=== PATIENT | male | born 1955 | race Caucasian/White ===

== ENCOUNTER → 2019-06-05 | Outpatient (CLI) | payer BC ==
--- NOTE | 2019-06-05 16:03 | Diagnostic Imaging Report ---
PROCEDURE: CT abdomen and pelvis without contrast. TECHNIQUE: Multiple contiguous axial images were obtained through the abdomen and pelvis without the use of intravenous contrast. Auto Exposure Controls were utilized during the CT exam to meet ALARA standards for radiation dose reduction. INDICATION: Microhematuria for one month. Currently asymptomatic. COMPARISON: None. FINDINGS: The heart is unremarkable. The included lung bases are clear. A moderate hiatal hernia is present. No evidence of obstruction calculi or hydronephrosis. No nonobstructing calculi are visualized in the kidneys. Nonspecific perinephric fat stranding is seen bilaterally. No obvious renal masses are seen on this noncontrast study. The urinary bladder is nondistended. The liver, spleen, pancreas, and adrenal glands have an unremarkable noncontrast CT appearance. There is no pathologically enlarged mesenteric or retroperitoneal adenopathy. The bowel loops are nondilated. There is no free fluid or free air. No acute osseous abnormalities. There is calcified aortic and iliac atherosclerotic plaque without aneurysm. There is no free air, loculated collection, or adenopathy in the pelvis. Small right and [id number] left inguinal hernia are visualized. The left inguinal hernia contains a loop of sigmoid colon. IMPRESSION: 1. No evidence of hydronephrosis or renal calculi. Nonspecific perinephric fat stranding is visualized. No obvious renal masses are seen. 2. Small to moderate left inguinal hernia containing a loop of sigmoid colon. No evidence of obstruction. 3. Moderate hiatal hernia. Dictated by: Dictated on workstation # [id number]
== END ==
LOC: RAD 15:23
PROVIDERS: ATTEND Urology
DX: K40.90 Unilateral inguinal hernia, without obstruction or gangrene, not specified as recurrent (principal); K44.9 Diaphragmatic hernia without obstruction or gangrene
CPT/HCPCS: 74176

== ENCOUNTER → 2019-07-12 | Outpatient (CLI) | payer BC ==
--- NOTE | 2019-07-12 11:58 | Diagnostic Imaging Report ---
INDICATION: Prostate CA. TECHNIQUE: 25 mCi tech 99 MDP given IV. 3 hour delayed whole body imaging. There is good uptake throughout the skeletal system. There is some focal increased uptake within the posterior vertebral body at the region of L4 on the left. There is also activity within both knees and ankles. IMPRESSION: 1. Degenerative changes noted within the knees and ankles. 2. Single foci of increased activity posteriorly along the level of L4 vertebral body. 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 No blastic lesions are seen in this region. Dictated by: Dictated on workstation # [id number]
== END ==
LOC: CARD 07:46
PROVIDERS: ATTEND Urology
DX: C61 Malignant neoplasm of prostate (principal); M17.0 Bilateral primary osteoarthritis of knee; M19.071 Primary osteoarthritis, right ankle and foot; M19.072 Primary osteoarthritis, left ankle and foot; M47.817 Spondylosis without myelopathy or radiculopathy, lumbosacral region
CPT/HCPCS: 78306

== ENCOUNTER 2020-07-07 14:58 | Outpatient (RCR) | payer BC | END 2020-07-21 | disposition home or self-care (01) | LOC: ONC 14:58 | PROVIDERS: ATTEND Radiology Radiation Oncology | DX: C61 Malignant neoplasm of prostate (principal); I10 Essential (primary) hypertension; E11.9 Type 2 diabetes mellitus without complications; Z85.828 Personal history of other malignant neoplasm of skin | CPT/HCPCS: 77300; 77301; 77334; 77336; 77338; 77385; 99204 ==

== ENCOUNTER 2020-08-20 10:17 | Outpatient (RCR) | payer BC ==
[2020-09-23] MEDS ORDERED: METF-399 PO (10:48)
[2020-09-23] MEDS ORDERED: MULT-1136 PO (10:49)
[2020-09-23] MEDS ORDERED: FERR325T24 PO (10:49)
[2020-09-23] MEDS ORDERED: LISI10TA25 PO (10:53)
[2020-09-23] MEDS ORDERED: EZET10TA49 PO (10:53)
[2020-09-23] MEDS ORDERED: HYDR12.56 PO (10:53)
[2020-09-23] MEDS ORDERED: VENL37.52 PO (10:53)
== END 2020-11-18 | disposition home or self-care (01) ==
LOC: ONC 10:17
PROVIDERS: ATTEND Radiology Radiation Oncology
DX: C61 Malignant neoplasm of prostate (principal); I10 Essential (primary) hypertension; E11.9 Type 2 diabetes mellitus without complications; Z85.828 Personal history of other malignant neoplasm of skin; Z79.84 Long term (current) use of oral hypoglycemic drugs; Z79.899 Other long term (current) drug therapy
CPT/HCPCS: 99213

== ENCOUNTER 2020-09-23 10:18 | Outpatient (CLI) | payer BC ==
[~2020-09-23] VITALS: Ht 182.9 cm; Wt 108.0 kg
[2020-09-23] MEDS ORDERED: METF-399 PO (10:48)
[2020-09-23] MEDS ORDERED: FERR325T24 PO (10:49)
[2020-09-23] MEDS ORDERED: MULT-1136 PO (10:49)
[2020-09-23] MEDS ORDERED: VENL37.52 PO (10:53)
[2020-09-23] MEDS ORDERED: EZET10TA49 PO (10:53)
[2020-09-23] MEDS ORDERED: HYDR12.56 PO (10:53)
[2020-09-23] MEDS ORDERED: LISI10TA25 PO (10:53)
== END 2020-09-23 13:45 | disposition home or self-care (01) ==
LOC: PREOP 10:18
PROVIDERS: ATTEND Surgery
DX: Z01.818 Encounter for other preprocedural examination (principal)

== ENCOUNTER 2020-09-30 10:40 | Day surgery (SDC) | payer BC ==
--- NOTE | 2020-09-23 12:43 | HISTORY AND PHYSICAL ---
DATE OF SERVICE: PROCEDURE DATE: 09/30/2020. ATTENDING PRIMARY CARE PHYSICIAN: Mason Carbajal DO HISTORY OF PRESENT ILLNESS: The patient is a 64-year-old male who was referred over to us in need of a screening colonoscopy. He reports that at this point in his life he has never had went down before. He denies any blood in the stool as well as no family history of ANY colon cancer. He denies any diarrhea or constipation as well as no abdominal pain. He does report a personal history of prostate cancer as well as chronic lymphocytic leukemia. PAST MEDICAL HISTORY: Prostate cancer, hypertension, hyperlipidemia, type 2 diabetes, chronic lymphocytic leukemia. PAST SURGICAL HISTORY: Appendectomy, vasectomy, umbilical hernia repair with mesh in 2007. ALLERGIES: No known drug allergies. MEDICATIONS: Simvastatin 20 mg daily, Xtandi 40 mg, venlafaxine 37.5 mg, hydrochlorothiazide 12.5 mg, lisinopril 10 mg, metformin 1000 mg. SOCIAL HISTORY: Negative for smoke. Negative for alcohol. FAMILY HISTORY: Mother, hypertension. Father, diabetes. VITAL SIGNS: Blood pressure is 118/64. Current weight is 233.1 pounds, height 6 feet 0 inches. REVIEW OF SYSTEMS: This is a well-nourished male in no acute distress. He is not experiencing any shortness of breath or difficulty breathing. No chest pain, palpitations or diaphoresis. No nausea, vomiting or abdominal pain. No diarrhea or constipation. No red blood per rectum. No dark tarry stools. No fever or chills. No recent inadvertent weight loss. All other review of systems negative. PHYSICAL EXAMINATION: CHEST: Clear. Good breath sounds bilaterally. HEART: Regular, no murmurs. EXTREMITIES: No lower extremity edema. Negative Homans sign. HEENT: No scleral icterus. NECK: No cervical lymphadenopathy. ABDOMEN: Soft, nontender, nondistended. SKIN: Warm, dry and pink. NEUROLOGIC: Awake, alert and oriented x3. ASSESSMENT AND PLAN: A 64-year-old male who is in need of a screening colonoscopy. He does have a personal history of prostate cancer as well as chronic lymphocytic leukemia. At this time, we will proceed with scheduling him for a screening colonoscopy. Job ID: [id number] DocumentID: [id number] Dictated Date: 09/23/2020 09:19:52 Floor Renovator Date: 09/23/2020 09:53:34 Dictated By: IKE WOODRUFF APRN
[2020-09-30] VITALS (11 sets, daily range): BP systolic 97–134; BP diastolic 56–96
[~2020-09-30] VITALS: Ht 182.9 cm; Wt 108.0 kg
[~2020-09-30 10:40] MED LIST: EZET10TA49 PO; FERR325T24 PO; HYDR12.56 PO; LISI10TA25 PO; METF-399 PO; MULT-1136 PO; VENL37.52 PO
[2020-09-30] MEDS ORDERED: NS IV 500 ML 500 ML ONE (10:49)
[2020-09-30] MEDS ORDERED: fentaNYL INJ 100 MCG/2 ML AMP IVP ONE (11:00)
[2020-09-30] MEDS ORDERED: MIDAZOLAM 5 MG/5 ML (VERSED) VIAL IV ONE (11:00)
[2020-09-30] MEDS ORDERED: LIDOCAINE JELLY 2% 6 ML SYRINGE MM PRN (11:00)
[2020-09-30] MEDS: NS IV 500 ML 500 ML IV PRN ×2 (11:05→11:13)
--- NOTE | 2020-09-30 11:06 | Conscious Sedation/ASA ---
Conscious Sedation Pre-Proced Time 10:30 ASA Score 2 For ASA 3 and 4: Consider anesthesia and medical clearance. Also, for patients with a history of failed moderate sedation consider anesthesia. Airway Lungs Heart ASA score ASA 1: a normal healthy patient ASA 2: a patient with a mild systemic disease (mid diabetes, controlled hypertension, obesity ASA 3: a patient with a severe systemic disease that limits activity (angina, COPD, prior Myocardial infarction) ASA 4: a patient with an incapacitating disease that is a constant threat to life (CHF, renal failure) ASA 5: a moribund patient not expected to survive 24 hrs. (ruptured aneurysm) ASA 6: a declared brain- patient whose organs are being harvested. For emergent operations, add the letter E after the classification Mallampati Classification Grade 2 Sedation Plan Analgesia, Amnesia, Plan communicated to team members, Discussed options with patient/fam, Discussed risks with patient/fam The patient is an appropriate candidate to undergo the planned procedure, sedation, and anesthesia. The patient immediately re-assessed prior to indication. VICENTA QUIÑONEZ MD Sep 30, 2020 11:06
--- NOTE | 2020-09-30 11:07 | Progress Note-Pre Operative ---
Pre-Operative Progress Note H&P Reviewed The H&P was reviewed, patient examined and no changes noted. Date Seen by Provider: Sep 30, 2020 Time Seen by Provider: 10:30 Date H&P Reviewed: Sep 30, 2020 Time H&P Reviewed: 10:30 Pre-Operative Diagnosis: screening VICENTA Lazcano MD Sep 30, 2020 11:07
--- NOTE | 2020-09-30 11:08 | Discharge Inst-Surgical ---
D/C Lap Instructions-OLAMIDE Follow Up Activity as tolerated High Fiber Diet 25g or more per day Avoid Alcohol, Caffeine, Spicy [place] and Acid foods. Drink 64 fluid oz or more of fluids per day. Symptoms to Report: Fever over 101 degree F, Nausea/Vomiting If any problems/questions: Contact your physician or go to Emergency Room VICENTA QUIÑONEZ MD Sep 30, 2020 11:08
[2020-09-30] MEDS ORDERED: HYDROcodone/APAP 5 MG/325 MG (LORTAB) TAB PO PRN (11:15)
[2020-09-30] MEDS ORDERED: morphine INJ 10 MG/ML 1ML (SYR OR VIAL) IVP PRN ×2 (11:15)
[2020-09-30] MEDS ORDERED: ACETAMINOPHEN 325 MG TABLET PO PRN (11:15)
[2020-09-30] MEDS ORDERED: ONDANSETRON 4 MG/2 ML (SDV) Z0FRAN IVP PRN (11:15)
--- NOTE | 2020-09-30 12:40 | Progress Note-Post Operative ---
Post-Operative Progess Note Surgeon (s)/Rpg Developer (s) Surgeon VICENTA QUIÑONEZ MD Rpg Developer: none Pre-Operative Diagnosis screening colo Post-Operative Diagnosis chronic stage 2 ext and int hemorrhoids, mild sigmoid diverticulosis, small sigmoid polyp. Procedure & Operative Findings Date of Procedure 09/30/20 Procedure Performed/Findings colonoscopy with forcep polypectomy Anesthesia Type cs Estimated Blood Loss Estimated blood loss (mL): minimal Specimens/Packing Specimens Removed sigmoid polyp VICENTA QUIÑONEZ MD Sep 30, 2020 12:40
--- NOTE | 2020-09-30 18:42 | OPERATIVE REPORT ---
DATE OF SERVICE: 09/30/2020 ATTENDING PRIMARY CARE PHYSICIAN: Mason Carbajal DO PREOPERATIVE DIAGNOSIS: Screening colonoscopy. POSTOPERATIVE DIAGNOSES: Chronic stage II external and internal hemorrhoids, mild sigmoid diverticulosis, small polyp of the sigmoid colon, 2 to 3 mm in size. PROCEDURE: Colonoscopy with polypectomy with biopsy forceps. SURGEON: Vicenta Quiñonez MD. ANESTHESIA: Conscious sedation. ESTIMATED BLOOD LOSS: Minimal. FINDINGS: Chronic stage II external and internal hemorrhoids, mild sigmoid diverticulosis, small polyp of the sigmoid colon, 2 to 3 mm in size. DISPOSITION: The patient tolerated the procedure well. INDICATIONS: The patient is a 64-year-old male in need of a screening colonoscopy. He has not had a colonoscopy up to this point in his life. He states for the most part he is doing well. He does not report any major issues with diarrhea nor constipation as well as no red blood per rectum nor any dark tarry stools. He also does not report any family history of colon cancer; however, he does have a personal history of prostate cancer and chronic lymphocytic leukemia. DESCRIPTION OF PROCEDURE: The patient was brought to endoscopy suite, laid in the left lateral decubitus position. After adequate IV pain and sedative medications and conscious sedation anesthesia, a digital rectal examination was performed, which revealed chronic stage II external and internal hemorrhoids, not actively edematous nor inflamed and no bleeding. Normal sphincter tone was felt and there were no palpable masses. Prostate gland was palpable and appeared normal. The endoscope was then intubated and anus and rectum gently insufflated. The endoscope was then advanced through the valves of Bhatia of the rectum with no polyps or any neoplasms identified. Through the sigmoid colon, a very mild or early diverticulosis identified. There was also a small polyp approximately 2 to 3 mm in size identified. This was biopsied and destroyed using forceps and electrocautery with visualization of good hemostasis. The endoscope was then advanced through remainder of the descending, transverse and ascending colon to the cecum. These segments were normal. No other lesions identified. The endoscope was then slowly withdrawn while taking a second look and suctioning of residual air with no additional findings. The patient tolerated the procedure well. We will recommend a high fiber diet with at least 30 grams of fiber daily as well as significant amounts of water to promote soft stools on a daily basis. If he is asymptomatic, he does not need another colonoscopy for another 10 years. Job ID: [id number] DocumentID: [id number] Dictated Date: 09/30/2020 12:34:21 Wiring Inspector Date: 09/30/2020 18:41:48 Dictated By: VICENTA QUIÑONEZ MD
== END 2020-09-30 13:15 | disposition home or self-care (01) ==
LOC: ENDO 10:40
PROVIDERS: ATTEND Surgery
DX: Z12.11 Encounter for screening for malignant neoplasm of colon (principal); D12.5 Benign neoplasm of sigmoid colon; K64.1 Second degree hemorrhoids; K57.30 Diverticulosis of large intestine without perforation or abscess without bleeding; I10 Essential (primary) hypertension; E78.5 Hyperlipidemia, unspecified; E11.9 Type 2 diabetes mellitus without complications; Z85.46 Personal history of malignant neoplasm of prostate; Z85.6 Personal history of leukemia; Z90.89 Acquired absence of other organs; Z98.890 Other specified postprocedural states; Z79.899 Other long term (current) drug therapy; Z79.84 Long term (current) use of oral hypoglycemic drugs
CPT/HCPCS: 88305

== ENCOUNTER 2022-06-03 07:40 | Outpatient (CLI) | payer MEDICARE, OTHER ==
[~2022-06-03] VITALS: Ht 182.9 cm; Wt 108.0 kg
[2022-06-03] MEDS ORDERED: FENO145T26 PO (09:35)
[2022-06-03] MEDS ORDERED: ENZA40CA PO (09:35)
[2022-06-03] MEDS ORDERED: MTP25TSR PO (09:35)
[2022-06-03] MEDS ORDERED: SIMV20TA26 PO (09:35)
== END 2022-06-03 09:38 ==
LOC: PREOP 07:40
PROVIDERS: ATTEND Surgery
DX: Z01.818 Encounter for other preprocedural examination (principal); D64.9 Anemia, unspecified

== ENCOUNTER 2022-06-08 11:42 | Day surgery (SDC) | payer MEDICARE, OTHER ==
[~2022-06-08] VITALS: Ht 182.9 cm; Wt 108.0 kg
[~2022-06-08 11:42] MED LIST changes: +ENZA40CA PO; +FENO145T26 PO; +MTP25TSR PO; +SIMV20TA26 PO
[2022-06-08] MEDS ORDERED: LACTATED RINGERS 1,000 ML IV STA (11:50)
--- NOTE | 2022-06-08 11:50 | Progress Note-Pre Operative ---
Pre-Operative Progress Note Date of Available H&P: Jun 08, 2022 Date H&P Reviewed: Jun 08, 2022 Time H&P Reviewed: 11:30 History & Physical: No changes noted Pre-Operative Diagnosis: hx CLL and anemia VICENTA QUIÑONEZ MD Jun 08, 2022 11:50
--- NOTE | 2022-06-08 11:51 | Discharge Inst-Surgical ---
D/C Lap Instructions-OLAMIDE Follow Up Activity as tolerated High Fiber Diet 25g or more per day Avoid Alcohol, Caffeine, Spicy [place] and Acid foods. Drink 64 fluid oz or more of fluids per day. Symptoms to Report: Fever over 101 degree F, Nausea/Vomiting If any problems/questions: Contact your physician or go to Emergency Room VICENTA QUIÑONEZ MD Jun 08, 2022 11:51
[2022-06-08] MEDS ORDERED: LIDOCAINE JELLY 2% 6 ML SYRINGE ONE (11:52)
[2022-06-08] MEDS ORDERED: LACTATED RINGERS 1,000 ML IV ONE (11:56)
[2022-06-08] MEDS ORDERED: HURRICAINE EXT TUBE (BENZOCAINE) ONE (11:56)
[2022-06-08] MEDS ORDERED: ONDANSETRON 4 MG (ZOFRAN) ORAL DISSOLVE TAB PO PRN (12:00)
[2022-06-08] MEDS ORDERED: LIDOCAINE JELLY 2% 6 ML SYRINGE MM PRN (12:00)
[2022-06-08] MEDS ORDERED: ONDANSETRON 4 MG/2 ML (SDV) Z0FRAN IVP PRN (12:00)
[2022-06-08] MEDS ORDERED: HURRICAINE EXT TUBE (BENZOCAINE) XX PRN (12:00)
[2022-06-08 12:10] VITALS: BP 156/86
[2022-06-08] MEDS ORDERED: PROPOFOL INJECTION 50 ML IV ONE (12:35)
--- NOTE | 2022-06-08 13:21 | Anesthesia-General Post-Op ---
MAC Patient Condition Mental Status/LOC: Same as Preop Cardiovascular: Satisfactory Nausea/Vomiting: Absent Respiratory: Satisfactory Pain: Controlled Complications: Absent Post Op Complications Complications None Follow Up Care/Instructions Patient Instructions None needed. Anesthesiology Discharge Order Discharge Order Patient is doing well, no complaints, stable vital signs, no apparent adverse anesthesia problems. No complications reported per nursing. RINA NGUYỄN CRNA Jun 08, 2022 13:21
[2022-06-08 13:25] VITALS: BP 117/68
--- NOTE | 2022-06-08 13:31 | Progress Note-Post Operative ---
Post-Operative Progess Note Surgeon (s)/Manager Implementation (s) Surgeon VICENTA QUIÑONEZ MD Manager Implementation: none Pre-Operative Diagnosis hx CLL and anemia Post-Operative Diagnosis reflux eosphagitis(grade B-C), mild distal esophageal stricture, mild gastritis. no bleeding sources. Procedure & Operative Findings Date of Procedure 06/08/22 Procedure Performed/Findings EGD with bx and balloon dilatation. Anesthesia Type mac Estimated Blood Loss Estimated blood loss (mL): minimal Specimens/Packing Specimens Removed ge jxn, antrum VICENTA QUIÑONEZ MD Jun 08, 2022 13:31
[2022-06-08 13:50] VITALS: BP 104/66
[2022-06-08 13:56] VITALS: BP 104/66
--- NOTE | 2022-06-08 18:41 | OPERATIVE REPORT ---
DATE OF SERVICE: 06/08/2022 ATTENDING PRIMARY CARE PHYSICIAN: Mason Carbajal DO PREOPERATIVE DIAGNOSIS: Anemia with history of chronic lymphocytic leukemia and prostate cancer. POSTOPERATIVE DIAGNOSES: Reflux esophagitis, Rock between grade B and C with a mild distal esophageal stricture, small hiatal hernia approximately 2.5 cm in size, mild gastritis. PROCEDURE: EGD with biopsy and balloon dilatation. SURGEON: Vicenta Quiñonez MD ANESTHESIA: Monitored anesthesia care. ESTIMATED BLOOD LOSS: Minimal. FINDINGS: Reflux esophagitis, Rock between grade B and C with a mild distal esophageal stricture, small hiatal hernia approximately 2.5 cm in size, mild gastritis. DISPOSITION: The patient tolerated the procedure well. INDICATIONS: The patient is a 66-year-old male who has had a longstanding history of anemia. This is multifactorial. He does have a history of chronic lymphocytic leukemia and has had multiple findings of anemia and has received blood transfusions as well as iron infusions in the past by his oncologist at [facility]. The patient also does have a history of prostate cancer and underwent radiation therapy. He did have a colonoscopy done in 2020 by us and a small benign hyperplastic polyp was identified. There wa no bleeding sources identified at all. He was referred back to us to proceed with an upper endoscopy. DESCRIPTION OF PROCEDURE: The patient was brought to the endoscopy suite and laid in the left lateral decubitus position. After adequate IV pain and sedative medications and monitored anesthesia care, the mouthpiece was applied. The endoscope was placed in the mouth, visualized the pharynx and hypopharyngeal region. Vocal cords, epiglottis and vallecula identified and appeared to be normal. The endoscope was then gently intubated into the esophageal opening and essophagus insufflated. The endoscope was then advanced through the first, second, third portions of esophagus at the level of the GE junction, reflux esophagitis, Rock between grade B and C identified with a mild distal esophageal stricture. A biopsy was taken with forceps with visualization of good hemostasis. The endoscope was then advanced into the stomach and endoscope retroflexed visualizing small hiatal hernia approximately 2.5 cm in size. There was a mild gastritis. No ulcerations, polyps, or any neoplasms as well as no bleeding sources identified. A biopsy was taken of the antrum to rule out H. pylori with visualization of good hemostasis. The endoscope was then advanced through the pylorus and the first and second portion of the duodenum, which appeared normal with no ulcerations or any bleeding sources. The endoscope was then slowly withdrawn while taking a second look and suctioning of residual air with no additional findings. The patient tolerated the procedure well. We will recommend medical management with the necessary lifestyle and dietary accommodation including small and more frequent meals, avoidance of eating at night as well as head elevation while lying supine. We also recommend moderation of caffeinated beverages. We will also recommend a high-fiber diet with addition of a fiber supplement, which should equal or exceed 30 grams daily to promote soft consistency stools on a daily basis. At this time, we feel that his gastrointestinal tract is not contributing to his episodes of anemia at this time. Job ID: [id number] DocumentID: [id number] Dictated Date: 06/08/2022 13:26:53 Rubber Compounder Formulator Date: 06/08/2022 18:38:00 Dictated By: VICENTA QUIÑONEZ MD MTDD
== END 2022-06-08 13:56 | disposition home or self-care (01) ==
LOC: ENDO 11:42
PROVIDERS: ATTEND Surgery
DX: K21.00 Gastro-esophageal reflux disease with esophagitis, without bleeding (principal); K22.2 Esophageal obstruction; K44.9 Diaphragmatic hernia without obstruction or gangrene; K29.70 Gastritis, unspecified, without bleeding; D64.9 Anemia, unspecified; C91.10 Chronic lymphocytic leukemia of B-cell type not having achieved remission; E11.9 Type 2 diabetes mellitus without complications; Z85.46 Personal history of malignant neoplasm of prostate; Z79.84 Long term (current) use of oral hypoglycemic drugs
CPT/HCPCS: 82947; 88305